=== PATIENT | female | born 1970 | race Caucasian/White ===

== ENCOUNTER 2023-10-27 20:10 | Emergency (ER) | payer BC, SELFPAY ==
[2023-10-27 20:15] VITALS: BP 127/90; PULSE 89; RESP 24; TEMP 36.5; O2SAT 99
--- NOTE | 2023-10-27 21:05 | DI.RAD_ITS ---
Exam(s) XR ANKLE LT COMPLETE EXAM: XR ANKLE LT COMPLETE CLINICAL HISTORY: L ankle injury. TECHNIQUE: 2D digital imaging was performed. COMPARISON: No exams were available for comparison FINDINGS: 3 views There is a nondisplaced oblique fracture in distal fibula just above the lateral malleolus. talar do me appears unremarkable. No obvious widening of the ankle mortise. Bone density normal. No osseous lesions. No tarsal coali tion. IMPRESSION: Nondisplaced distal fibular fracture. DATA REPOSITORY: RADIATION DOSE DELIVERED:
--- NOTE | 2023-10-27 21:08 | W.ED.GENAD ---
Discharge Plan Disposition Patient Disposition: Home Condition: Stable Discharge Details Clinical Impression: Fracture of left fibula Primary Care Provider: Alyssia Casas ED Provider: Michael Myles Home Meds and New Rx's Prescriptions: No Action promethazine 25 MG tablet 1 tab PO PRN PRN [id number] [Fioricet] 1 EACH capsule 1 cap PO PRN PRN Discharge Instructions Instructions: Lower Leg Fracture ED Additional Instructions: You were seen in the emergency department for the nondisplaced fracture of your distal left fibula, the ankle joint appears intact. Please remain in the walking boot, toe tapping for very partial weightbearing is okay. Use your crutches, please rest, ice, compress and elevate the ankle often over the next week or 2. Please use therapeutic dosing of Tylenol (acetamenophen) & Advil (ibuprofen) in an alternating fashion as follows: Take 1000mg of Tylenol every 6 hours without missing doses- that is 4 times per day. Nursing Home in between the Tylenol dosings, take 400-600mg of Advil also on a 6 hour schedule, that is also 4 times per day. The daily maximum dosing of Tylenol is 4000mg, and the daily maximum dosing of Advil is 2400mg. This is safe to do for weeks. Please note that some common cold medications & prescription pain medications may contain acetamenophen and you need to read OTC drug labels and factor that in to maximum daily dosings. You may follow-up with your primary care provider or our orthopedic office for routine x-rays to ensure routine healing. Please return for any signs of neurovascular compromise as we discussed at length at today's visit Referrals: [facility] [Provider Group] Alyssia Casas [Primary Care Provider] - Discharge Data Discharge Date/Time-TO BE ENTERED AT DEPARTURE: 10/27/23 22:56 HPI General Date/Time Provider Initiated Documentation: 10/27/23 20:43. HPI Narrative: 53 year-old female presents to ED today by POV/ambulating with a chief complaint of fall in front yard at home with onset 30 minutes prior to arrival. Quality described as L ankle pain- severe, lateral malleolar focal- R-leg dominant, no radiation to complete numbness distally, gross deformity, knee pain. Severity is described as severe. Palliating factors include nothing specific attempted- icing it in ED. Provoking factors include nothing specific. Patient not anticoagulated. Related Data Home Medications ?Medication ?Instructions ?Recorded ?Confirmed [id number]-iidfebrfkojtv-[id number] 1 cap PO PRN PRN 12/31/13 10/27/23 50 mg-300 mg-40 mg capsule (Fioricet) promethazine 25 mg tablet 1 tab PO PRN PRN 12/31/13 10/27/23 Allergies Allergy/AdvReac Type Severity Reaction Status Date / Time erythromycin base Allergy Unknown Skin Rash Unverified 10/27/23 20:19 (Erythromycin Base) General Stated Complaint: Orthopedic DEVIN: 4 Review of Systems All systems reviewed & are unremarkable except as noted in HPI and below Exam Narrative Exam Narrative: GENERAL APPEARANCE: Well-nourished, non-toxic, awake and alert, atraumatic, no acute distress. SKIN: Warm, pink, dry, intact, without rashes/lesions/ulcerations. HEAD: Normocephalic, atraumatic, normal hair distribution for gender/age. EYES: Pupils PERRLA, EOMs intact without nystagmus, normal conjunctiva, no exudates on lids/lashes. ENT: Nares patent, no circumoral cyanosis, no facial swelling NECK: Supple, trachea midline, painless cervical ROM. LUNGS/CHEST: Non-labored respirations, normal A/P diameter, symmetrical expansion, no chest wall deformity HEART (CV/PV): Regular rate and rhythm without murmur, no peripheral edema, no JVD. ABDOMEN: Soft, non-distended, no guarding. MSK: Normal ROM, no swelling/deformity to bilateral UEs or LEs, moving all extremities without weakness, no cyanosis, spine midline without tenderness, normal curvature. L LE: Swelling around the left ankle, left dorsalis pedis pulse 2+, sensation intact distal, no overt crepitus, focal swelling at the lateral malleolus without fibular head tenderness or proximal calf swelling NEURO: Mental Status AAOx4 - alert to person, place, time, events No facial droop, no forehead involvement. Motor: No focal weakness - strength 5/5 in bilateral UEs and LEs, proximal and distal, symmetric. Sensory: sensation intact to light touch globally. Gait normal: patient ambulated without ataxia into ED room. PSYCH: euthymic, cooperative, pleasant, appropriate speech Course Vital Signs Vital signs: Vital Signs Temperature 36.5 C 10/27/23 20:15 Pulse 89 10/27/23 20:15 Respiratory Rate 24 10/27/23 20:15 Blood Pressure 127/90 10/27/23 20:15 Pulse Oximetry 99 10/27/23 20:15 Temperature 36.5 C 10/27/23 20:15 Temperature Source Temporal Artery Scan 10/27/23 20:15 Pulse 89 10/27/23 20:15 Respiratory Rate 24 10/27/23 20:15 Respiratory Effort Normal, Non-Labored 10/27/23 20:19 Blood Pressure 127/90 10/27/23 20:15 Blood Pressure Position Sitting 10/27/23 20:15 Pulse Oximetry 99 10/27/23 20:15 Oxygen Delivery Method Room Air 10/27/23 20:15 Oxygen Flow Rate 0 10/27/23 20:15 Pain Level 10 10/27/23 20:55 Medical Decision Making This dictation utilizes [id number] dictation software and may contain unedited grammatical errors. 53 year-old female presents to ED today by POV/ambulating with a chief complaint of fall in front yard at home with onset 30 minutes prior to arrival. Quality described as L ankle pain- severe, lateral malleolar focal- R-leg dominant, no radiation to complete numbness distally, gross deformity, knee pain. Severity is described as severe. Palliating factors include nothing specific attempted- icing it in ED. Provoking factors include nothing specific. Patients' medical history: Noncontributory. Family and social history: Noncontributory. Pertinent exam findings / vital signs include left lateral malleoli are tenderness, dorsalis pedis pulse 2+, sensation intact, no proximal calf tenderness. Differential / pathologies of concern include fracture, sprain/strain. Diagnostic studies of: -XR L ankle-shows nondisplaced distal fibula fracture. Interventions of: -Walking boot and crutches. ED Course/Assessment/Plan: Counseled the patient on nondisplaced fibular fracture, given walking boot and crutches, recommend toe tap only, please follow-up with primary care or orthopedics for routine x-rays to ensure routine healing, recommend RICE therapy as well as therapeutic dosing of Tylenol and ibuprofen, strict return criteria for any signs of neurovascular compromise. Findings not consistent with displaced fracture, sprain strain, neurovascular compromise. Disposition of fracture of left fibula. Patient verbalized understanding of the plan and return to ED criteria and engaged in shared decision making. Medical Records Medical records reviewed: Yes I reviewed the patient's medical records. Imaging Data Radiologic Study: Attestation: I personally reviewed and interpreted this imaging study as follows: Imaging: X-Ray Radiologist's impression: Exam: XR Left Ankle Exam date and time: 10/27/2023 9:37 PM Age: 53 years old Clinical indication: Condition or disease; Other: Injury TECHNIQUE: Imaging protocol: Radiologic exam of the left ankle. Views: 3 or more views. COMPARISON: No relevant prior studies available. FINDINGS: Bones/joints: Bone mineralization is age-appropriate. There is a nondisplaced fracture of the distal left fibula. No evidence of dislocation. The joint spaces are adequately preserved; no significant degenerative narrowing and no bony erosion seen. Soft tissues: No radiopaque foreign body present. There is soft tissue swelling present. IMPRESSION: 1. There is a nondisplaced fracture of the distal left fibula. 2. There is soft tissue swelling present. Dictated and Authenticated by: Jim Reyes MD. Quality:[facility] Related Social Needs: No Data to Display PFSH All Active Problems (Updated 10/27/23 @ 22:48 by REGIS Cruz) Fracture of left fibula (Acute) Social History Smoking/Tobacco Use Status: Never Smoking risk assessment performed?: Yes Drug use: Never
[2023-10-27] MEDS: Acetaminophen 500 MG TAB 1000 MG PO (21:24)
[2023-10-27] MEDS: Ketorolac 10 MG TAB PO (21:25)
--- NOTE | 2023-10-27 22:11 | DI.VRAD_ITS ---
PROCEDURE INFORMATION: Exam: XR Left Ankle Exam date and time: 10/27/2023 9:37 PM Age: 53 years old Clinical indication: Condition or disease; Other: Injury TECHNIQUE: Imaging protocol: Radiologic exam of the left ankle. Views: 3 or more views. COMPARISON: No relevant prior studies available. FINDINGS: Bones/joints: Bone mineralization is age-appropriate. There is a nondisplaced fracture of the distal left fibula. No evidence of dislocation. The joint spaces are adequately preserved; no significant degenerative narrowing and no bony erosion seen. Soft tissues: No radiopaque foreign body present. There is soft tissue swelling present. IMPRESSION: 1. There is a nondisplaced fracture of the distal left fibula. 2. There is soft tissue swelling present. Dictated and Authenticated by: Jim Reyes MD. Ordering:KIMBERLEE Rodriguez MD
== END 2023-10-27 22:56 | disposition home or self-care (01) ==
PROVIDERS: Emergency Provider Physician Assistant; PCP Family Medicine
DX: S82.832A Other fracture of upper and lower end of left fibula, initial encounter for closed fracture (principal); W19.XXXA Unspecified fall, initial encounter
CPT/HCPCS: 27786; 99283; 73610

== ENCOUNTER 2023-11-03 11:36 | Outpatient (CLI) | payer BC, SELFPAY ==
--- NOTE | 2023-11-03 09:15 | DI.RAD_ITS ---
Exam(s) XR ANKLE LT COMPLETE EXAM: XR ANKLE LT COMPLETE CLINICAL HISTORY: F/U FRACTURE TECHNIQUE: 2D digital imaging was performed of the left ankle. Three images were obtained. AP, lat eral and oblique views were obtained. COMPARISON: CR,XR XR ANKLE LT COMPLETE from 10/27/2023 FINDINGS: BONES: There has been no change in alignment of the nondisplaced distal fibular fracture. No new fra ctures identified. No bony destructive lesion is seen. JOINTS:The ankle mortise is normally aligned. SOFT TISSUE: There is soft tissue swelling laterally. IMPRESSION: No change in alignment of the nondisplaced distal left fibular fracture. DATA REPOSITORY: RADIATION DOSE DELIVERED:
== END 2023-11-03 11:37 | disposition home or self-care (01) ==
LOC: DIORS 11:36
PROVIDERS: PCP Family Medicine; Visit Provider Student in an Organized Health Care Education/Training Program
DX: S82.402A Unspecified fracture of shaft of left fibula, initial encounter for closed fracture (principal)
CPT/HCPCS: 73610

== ENCOUNTER 2023-12-08 15:48 | Outpatient (CLI) | payer BC, SELFPAY ==
--- NOTE | 2023-12-08 15:00 | DI.RAD_ITS ---
Exam(s) XR ANKLE LT COMPLETE EXAM: XR ANKLE LT COMPLETE CLINICAL HISTORY: F/U FRACTURE TECHNIQUE: 2D digital imaging was performed. Three views. COMPARISON: CR XR ANKLE LT COMPLETE from 11/03/2023 FINDINGS: BONES: No change in alignment of distal fibular fracture which shows some increased healing. No new bony abnormalities. No bony destructive lesion is seen. JOINTS:The ankle mortise is normally aligned. SOFT TISSUE: Swelling remains present. IMPRESSION: Healing distal fibular fracture. DATA REPOSITORY: RADIATION DOSE DELIVERED:
== END 2023-12-08 15:49 | disposition home or self-care (01) ==
LOC: DIORS 15:51
PROVIDERS: PCP Family Medicine; Visit Provider Student in an Organized Health Care Education/Training Program
DX: S82.832A Other fracture of upper and lower end of left fibula, initial encounter for closed fracture (principal)
CPT/HCPCS: 73610